=== PATIENT | male | born 1945 | race Caucasian/White ===

== ENCOUNTER → 2017-01-29 | Outpatient (REF) | payer MEDICARE, OTHER ==
[2017-01-29 13:24] LABS: ALBUMIN 3.6 GM/DL (3.2-5.2); ALBUMIN/GLOBULIN RATIO 0.86 (1.00-1.93); ALKALINE PHOSPHATASE 75 U/L (45-117); ALT/SGPT 20 U/L (12-78); ANION GAP 8 MEQ/L (8-16); AST/SGOT 11 U/L (15-37); BILIRUBIN,TOTAL 0.6 MG/DL (0.2-1.0); BLOOD UREA NITROGEN 23 MG/DL (7-18); CALCIUM LEVEL 9.4 MG/DL (8.8-10.2); CARBON DIOXIDE LEVEL 27 MEQ/L (21-32); CHLORIDE LEVEL 102 MEQ/L (98-107); CREATININE FOR GFR 1.16 MG/DL (0.70-1.30); GLOMERULAR FILTRATION RATE > 60.0 (>42); GLUCOSE, FASTING 100 MG/DL (83-110); POTASSIUM SERUM 4.1 MEQ/L (3.5-5.1); SODIUM LEVEL 137 MEQ/L (136-145); TOTAL PROTEIN 7.8 GM/DL (6.4-8.2)
== END ==
LOC: M SFHCPLAZ 08:12
PROVIDERS: ATTEND Nurse Practitioner Family
DX: I10 Essential (primary) hypertension (principal); E55.9 Vitamin D deficiency, unspecified
CPT/HCPCS: 80053; 82306; G0463

== ENCOUNTER → 2017-06-18 | Outpatient (CLI) | payer MEDICARE, BC, OTHER ==
[2017-06-18 13:32] LABS: BLOOD UREA NITROGEN 25 MG/DL (7-18); CREATININE FOR GFR 0.97 MG/DL (0.70-1.30); GLOMERULAR FILTRATION RATE > 60.0 (>42)
== END ==
LOC: M WUC 09:53
PROVIDERS: ATTEND Surgery Vascular Surgery
DX: I70.211 Atherosclerosis of native arteries of extremities with intermittent claudication, right leg (principal)

== ENCOUNTER → 2017-07-16 | Outpatient (CLI) | payer MEDICARE, BC, OTHER ==
[~2017-07-16] MED LIST: ISOVUE-370 76% 100ML VIAL (Q9967) As Ordered ONE
--- NOTE | 2017-07-16 15:25 | REP ---
CT ANGIOGRAM OF THE ABDOMINAL AORTA AND RUNOFF VESSELS WITH IV CONTRAST: HISTORY: Bilateral lower extremity claudication. TECHNIQUE: Helical scanning is acquired post contrast and contiguous 3 mm axial images are generated. Coronal and sagittal multiplanar re-formation images are generated and reviewed. Thick slab maximal intensity projection images are generated. 3D work station generated color surface rendered images are obtained and reviewed rotational. NONVASCULAR CT FINDINGS: There is left colonic diverticulosis without CT evidence of diverticulitis. The prostate is moderately enlarged. VASCULAR CT FINDINGS: The distal thoracic and abdominal aorta are normal in caliber with moderate multifocal calcific plaquing. The celiac axis and superior mesenteric axis origins are unremarkable. Vascular calcification is seen at the origin of the main renal artery bilaterally without high-grade stenosis. There is a tiny patent upper pole renal artery on the left. Inferior mesenteric artery is patent. The left common iliac artery is occluded at its origin and there is reconstitution of the distal external at its bifurcation. A patent fem-fem crossover graft is seen in the suprapubic soft tissues. Vascular calcification is seen in the external iliacs bilaterally. The left external iliac, although patent, is quite small throughout its course. The left common femoral artery is nonstenotic. Its bifurcation is patent. The proximal superficial and profunda femoral artery are patent. There is moderate vascular atherosclerotic calcification in the mid SFA on the left. Left popliteal artery is of good caliber with some calcification. The tibioperoneal trunk is unremarkable. There is calcification at the trifurcation. Patent anterior, posterior tibial and peroneal arteries are seen to the distal calf on the left and the anterior tibial and posterior tibial across the ankle. On the right, there is some plaquing at the common femoral artery bifurcation. Profunda and superficial femoral arteries are patent. Calcific plaquing is seen in the proximal superficial femoral artery and multifocal calcific plaquing is seen in the SFA without high-grade stenosis. Popliteal artery is of good caliber but calcific. The tibioperoneal trunk is widely patent. Three-vessel calf run off is seen to the distal calf with anterior and posterior tibial arteries patent across the ankle. IMPRESSION: Good runoff bilaterally. 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 Patent fem-fem crossover graft. Atherosclerotic plaquing involving both superficial femoral arteries and popliteal arteries. No high-grade stenosis seen. Duplicated left renal artery. Left colonic diverticulosis and prostate enlargement. Signed by Marcio Camp MD 07/16/2017 05:12 P
== END ==
LOC: M RAD 12:33
PROVIDERS: ATTEND Surgery Vascular Surgery
DX: I70.213 Atherosclerosis of native arteries of extremities with intermittent claudication, bilateral legs (principal); K57.30 Diverticulosis of large intestine without perforation or abscess without bleeding; N40.0 Benign prostatic hyperplasia without lower urinary tract symptoms
CPT/HCPCS: 75635; Q9967

== ENCOUNTER → 2017-07-31 | Outpatient (CLI) | payer MEDICARE, BC, OTHER ==
--- NOTE | 2017-07-31 19:37 | REP ---
MRI lumbar spine: Without contrast. History: Bilateral leg weakness. Comparison radiographs are from November 14, 2015. Technique: Sagittal and axial T1 and T2-weighted scans are acquired in the usual fashion with and without fat saturation. Sequences include spin echo, turbo spin-echo, and STIR imaging sequences. MRI findings: Lumbar vertebral body heights are preserved. Alignment is normal. Cortical and medullary bone signal intensity are normal. Conus medullaris is normal in position and appearance at T12-L1. Normal caliber aorta. No extra spinal abnormality is observed. At L5-S1, axial and sagittal images demonstrate a very small central disc protrusion without thecal sac compression. There is mild facet hypertrophy bilaterally. No neural foraminal narrowing is appreciated. At L4-5, there is diffuse disc bulging. There is moderate osteoarthritic facet hypertrophy bilaterally. Canal size is borderline due to ligamentum flavum and facet hypertrophy as well as diffuse disc bulging. Mid sagittal AP dimension of the thecal sac is 11 mm in the midline. There is a subtle 1 mm L4-5 spondylolisthesis due to degenerative disc and facet disease. There is bilateral neural foraminal narrowing from disc bulging and facet hypertrophy, left more so than right. At L3-4, there is mild diffuse disc bulging. Minimal facet and ligamentum flavum hypertrophy changes are seen. Canal size is normal. No neural foraminal narrowing is seen. At L2-3 and L1-2 there is no significant finding. Impression: Borderline canal size at L4-5 with diffuse disc bulging, ligamentum flavum and facet hypertrophy and bilateral neural foraminal narrowing at L4-5. A very subtle grade 1 degenerative L4-5 spondylolisthesis is noted. Signed by Marcio Camp MD 08/01/2017 08:32 A
== END ==
LOC: M RAD 13:57
PROVIDERS: ATTEND Surgery Vascular Surgery
DX: M79.604 Pain in right leg (principal); M79.605 Pain in left leg; M51.26 Other intervertebral disc displacement, lumbar region; M43.16 Spondylolisthesis, lumbar region

== ENCOUNTER → 2018-01-26 | Outpatient (CLI) | payer MEDICARE, BC, OTHER | LOC: M WUC 14:55 | DX: J44.9 Chronic obstructive pulmonary disease, unspecified (principal) | CPT/HCPCS: 71046 ==

== ENCOUNTER → 2018-02-19 | Outpatient (REF) | payer MEDICARE, OTHER ==
[2018-02-19 13:12] LABS: ALBUMIN 3.3 GM/DL (3.2-5.2); ALBUMIN/GLOBULIN RATIO 0.75 (1.00-1.93); ALKALINE PHOSPHATASE 70 U/L (45-117); ALT/SGPT 16 U/L (12-78); ANION GAP 10 MEQ/L (8-16); AST/SGOT 13 U/L (7-37); BILIRUBIN,TOTAL 0.3 MG/DL (0.2-1.0); BLOOD UREA NITROGEN 24 MG/DL (7-18); CALCIUM LEVEL 9.1 MG/DL (8.8-10.2); CARBON DIOXIDE LEVEL 26 MEQ/L (21-32); CHLORIDE LEVEL 103 MEQ/L (98-107); CHOLESTEROL LEVEL 201 MG/DL (<200); CHOLESTEROL RISK RATIO 3.941 (<5); CREATININE FOR GFR 1.14 MG/DL (0.70-1.30); GLOMERULAR FILTRATION RATE > 60.0 (>42); GLUCOSE, FASTING 89 MG/DL (70-100); HDL CHOLESTEROL 51 MG/DL (>40); LDL CHOLESTEROL 130.6 MG/DL (<100); NON-HDL-C 150 MG/DL; POTASSIUM SERUM 4.3 MEQ/L (3.5-5.1); SODIUM LEVEL 139 MEQ/L (136-145); TOTAL PROTEIN 7.7 GM/DL (6.4-8.2); TRIGLYCERIDES LEVEL 97 MG/DL (<150)
== END ==
LOC: M SFHCPLAZ 09:44
DX: E78.2 Mixed hyperlipidemia (principal)
CPT/HCPCS: 80053

== ENCOUNTER 2018-07-03 21:44 | Inpatient (IN) | payer MEDICARE, BC, OTHER ==
[2018-07-03 22:31] LABS: BASO % 0.3 % (0.0-1.0); EOS # 0.1 10^3/uL (0.0-0.50); HEMATOCRIT 44.7 % (42.0-52.0); HEMOGLOBIN 14.5 g/dl (13.5-17.5); IMMATURE GRANULOCYTE % 0.5 % (0-3.0); LYMPH # 0.8 10^3/uL (1.5-4.5); LYMPH % 9.9 % (24.0-44.0); MEAN CORPUSCULAR HEMOGLOBIN 26.6 pg (27.0-33.0); MEAN CORPUSCULAR HGB CONC 32.4 g/dl (32.0-36.5); MONO # 0.8 10^3/uL (0.0-0.8); MONO % 10.7 % (0.0-5.0); NEUTROPHILS # 6.1 10^3/uL (1.8-7.7); NEUTROPHILS % 77.6 % (36.0-66.0); PLATELET COUNT, AUTOMATED 250 10^3/uL (150-450); RED BLOOD COUNT 5.45 10^6/uL (4.30-6.10); WHITE BLOOD COUNT 7.9 10^3/uL (4.0-10.0)
[2018-07-03 22:41] LABS: INR 0.94; PROTHROMBIN TIME 12.7 SECONDS (12.1-14.4)
[2018-07-03 22:51] LABS: ERYTHROCYTE SEDIMENTATION RATE 4 mm/hr (0-20)
[2018-07-03 23:08] LABS: ANION GAP 15 MEQ/L (8-16); BLOOD UREA NITROGEN 32 MG/DL (7-18); CALCIUM LEVEL 9.6 MG/DL (8.8-10.2); CARBON DIOXIDE LEVEL 19 MEQ/L (21-32); CHLORIDE LEVEL 100 MEQ/L (98-107); CREATININE FOR GFR 1.89 MG/DL (0.70-1.30); GLOMERULAR FILTRATION RATE 37.5 (>42); GLUCOSE, FASTING 99 MG/DL (70-100); POTASSIUM SERUM 3.6 MEQ/L (3.5-5.1); SODIUM LEVEL 134 MEQ/L (136-145)
[2018-07-03 23:10] LABS: LACTIC ACID SEPSIS PROTOCOL 3.3 MMOL/L (0.4-2.0)
[2018-07-03] MEDS ORDERED: NS 500 ML IV (23:15)
[2018-07-03] MEDS: NS 1,000 ML IV (23:15)
[2018-07-03] MEDS ORDERED: cefTRIAXone SOD 1 GM in D5W MINI-BAG PLUS 50 ML IV (23:30)
[2018-07-04] MEDS: NS 1,000 ML IV ×2 (01:15→09:24)
[2018-07-04] MEDS ORDERED: ACETAMINOPHEN TAB 650MG DOSE (2X325MG) PO (01:15)
[2018-07-04] MEDS ORDERED: CLINDAMYCIN 600 MG/50 ML PREMIX BAG As Ordered (01:20)
[2018-07-04] MEDS: CLINDAMYCIN 600 MG in APPROPRIATE DILUENT 1 EA IV ×4 (01:21→20:28)
[2018-07-04] MEDS: CLOPIDOGREL 75 MG TAB PO ×2 (02:38→20:28)
[2018-07-04] MEDS: ASPIRIN 325 MG TAB PO ×2 (02:38→20:28)
[2018-07-04 07:45] LABS: BASO % 0.3 % (0.0-1.0); EOS # 0.2 10^3/uL (0.0-0.50); EOS % 2.6 % (0.0-3.0); HEMATOCRIT 40.1 % (42.0-52.0); HEMOGLOBIN 13.1 g/dl (13.5-17.5); IMMATURE GRANULOCYTE % 0.3 % (0-3.0); LYMPH # 0.8 10^3/uL (1.5-4.5); LYMPH % 14.2 % (24.0-44.0); MEAN CORPUSCULAR HEMOGLOBIN 26.6 pg (27.0-33.0); MEAN CORPUSCULAR HGB CONC 32.7 g/dl (32.0-36.5); MEAN CORPUSCULAR VOLUME 81.5 fl (80.0-96.0); MONO # 0.9 10^3/uL (0.0-0.8); MONO % 16.3 % (0.0-5.0); NEUTROPHILS # 3.8 10^3/uL (1.8-7.7); NEUTROPHILS % 66.3 % (36.0-66.0); PLATELET COUNT, AUTOMATED 220 10^3/uL (150-450); RED BLOOD COUNT 4.92 10^6/uL (4.30-6.10); RED CELL DISTRIBUTION WIDTH 14.7 % (11.5-14.5); WHITE BLOOD COUNT 5.8 10^3/uL (4.0-10.0)
[2018-07-04 08:06] LABS: ANION GAP 10 MEQ/L (8-16); BLOOD UREA NITROGEN 26 MG/DL (7-18); CALCIUM LEVEL 8.8 MG/DL (8.8-10.2); CARBON DIOXIDE LEVEL 24 MEQ/L (21-32); CHLORIDE LEVEL 106 MEQ/L (98-107); CREATININE FOR GFR 1.22 MG/DL (0.70-1.30); GLOMERULAR FILTRATION RATE > 60.0 (>42); GLUCOSE, FASTING 99 MG/DL (70-100); POTASSIUM SERUM 4.1 MEQ/L (3.5-5.1); SODIUM LEVEL 140 MEQ/L (136-145)
[2018-07-04] MEDS: ENOXAPARIN 40 MG/0.4 ML SYRINGE (J1650) SC ×2 (09:00→09:20)
[2018-07-04] MEDS ORDERED: ASPIRIN 325 MG TAB PO (09:00)
[2018-07-04] MEDS ORDERED: CLOPIDOGREL 75 MG TAB PO (09:00)
[2018-07-04] MEDS: HYDROCORTISONE 2.5% 20GM OINTMENT TOP ×2 (09:20→20:29)
[2018-07-04] MEDS: hydroCHLOROthiazide 25 MG TAB PO (09:21)
[2018-07-04] MEDS: LISINOPRIL 10 MG TAB PO (09:21)
[2018-07-04] MEDS: GEMFIBROZIL 600 MG TAB PO ×2 (09:22→20:28)
[2018-07-04] MEDS: PANTOPRAZOLE 40MG TAB (PROTONIX) PO (09:22)
[2018-07-04] MEDS: EZETIMIBE 10 MG TAB (ZETIA) PO (09:22)
[2018-07-05] MEDS: CLINDAMYCIN 600 MG in APPROPRIATE DILUENT 1 EA IV ×4 (01:39→19:45)
[2018-07-05 08:12] LABS: HEMATOCRIT 40.5 % (42.0-52.0); HEMOGLOBIN 13.1 g/dl (13.5-17.5); MEAN CORPUSCULAR HGB CONC 32.3 g/dl (32.0-36.5); MEAN CORPUSCULAR VOLUME 80.4 fl (80.0-96.0); PLATELET COUNT, AUTOMATED 243 10^3/uL (150-450); RED BLOOD COUNT 5.04 10^6/uL (4.30-6.10); RED CELL DISTRIBUTION WIDTH 14.6 % (11.5-14.5); WHITE BLOOD COUNT 5.2 10^3/uL (4.0-10.0)
[2018-07-05 08:40] LABS: ANION GAP 8 MEQ/L (8-16); BLOOD UREA NITROGEN 21 MG/DL (7-18); CALCIUM LEVEL 9.4 MG/DL (8.8-10.2); CARBON DIOXIDE LEVEL 26 MEQ/L (21-32); CHLORIDE LEVEL 106 MEQ/L (98-107); CREATININE FOR GFR 1.08 MG/DL (0.70-1.30); GLOMERULAR FILTRATION RATE > 60.0 (>42); GLUCOSE, FASTING 98 MG/DL (70-100); SODIUM LEVEL 140 MEQ/L (136-145)
[2018-07-05] MEDS: LACTIC ACID 12% LOTION 225 GM BTL TOP ×2 (09:00→21:00)
[2018-07-05] MEDS: ENOXAPARIN 40 MG/0.4 ML SYRINGE (J1650) SC (09:00)
[2018-07-05] MEDS: GEMFIBROZIL 600 MG TAB PO ×2 (10:19→22:14)
[2018-07-05] MEDS: EZETIMIBE 10 MG TAB (ZETIA) PO (10:19)
[2018-07-05] MEDS: PANTOPRAZOLE 40MG TAB (PROTONIX) PO (10:20)
[2018-07-05] MEDS: hydroCHLOROthiazide 25 MG TAB PO (10:20)
[2018-07-05] MEDS: HYDROCORTISONE 2.5% 20GM OINTMENT TOP ×2 (10:21→21:00)
[2018-07-05] MEDS: LISINOPRIL 10 MG TAB PO (10:22)
[2018-07-05] MEDS: ASPIRIN 325 MG TAB PO (22:14)
[2018-07-05] MEDS: CLOPIDOGREL 75 MG TAB PO (22:14)
[2018-07-06] MEDS: CLINDAMYCIN 600 MG in APPROPRIATE DILUENT 1 EA IV ×2 (01:54→08:16)
[2018-07-06 07:07] LABS: HEMATOCRIT 43.1 % (42.0-52.0); MEAN CORPUSCULAR HEMOGLOBIN 25.9 pg (27.0-33.0); MEAN CORPUSCULAR HGB CONC 32.5 g/dl (32.0-36.5); MEAN CORPUSCULAR VOLUME 79.8 fl (80.0-96.0); PLATELET COUNT, AUTOMATED 265 10^3/uL (150-450); RED CELL DISTRIBUTION WIDTH 14.6 % (11.5-14.5); WHITE BLOOD COUNT 5.4 10^3/uL (4.0-10.0)
[2018-07-06 07:23] LABS: ANION GAP 8 MEQ/L (8-16); BLOOD UREA NITROGEN 21 MG/DL (7-18); C REACTIVE PROTEIN QUANTITATIV 7.08 MG/DL (0.00-0.30); CALCIUM LEVEL 9.7 MG/DL (8.8-10.2); CARBON DIOXIDE LEVEL 28 MEQ/L (21-32); CHLORIDE LEVEL 103 MEQ/L (98-107); CREATININE FOR GFR 1.08 MG/DL (0.70-1.30); GLOMERULAR FILTRATION RATE > 60.0 (>42); GLUCOSE, FASTING 99 MG/DL (70-100); POTASSIUM SERUM 3.9 MEQ/L (3.5-5.1); SODIUM LEVEL 139 MEQ/L (136-145)
[2018-07-06] MEDS: hydroCHLOROthiazide 25 MG TAB PO (08:16)
[2018-07-06] MEDS: GEMFIBROZIL 600 MG TAB PO (08:17)
[2018-07-06] MEDS: EZETIMIBE 10 MG TAB (ZETIA) PO (08:17)
[2018-07-06] MEDS: LISINOPRIL 10 MG TAB PO (08:17)
[2018-07-06] MEDS: PANTOPRAZOLE 40MG TAB (PROTONIX) PO (08:17)
[2018-07-06] MEDS: LACTIC ACID 12% LOTION 225 GM BTL TOP (08:18)
[2018-07-06] MEDS: ENOXAPARIN 40 MG/0.4 ML SYRINGE (J1650) SC (08:19)
[2018-07-06] MEDS: HYDROCORTISONE 2.5% 20GM OINTMENT TOP (08:19)
[2018-07-06] MEDS: hydroCHLOROthiazide 12.5 MG CAPSULE PO (08:46)
== END 2018-07-06 13:05 | disposition home or self-care (01) | DRG 603 ==
LOC: M ED INP 07-04 01:03 → M ED 21:44 → M MS5PR 07-04 02:00
DX: L03.116 Cellulitis of left lower limb (principal); N17.9 Acute kidney failure, unspecified; I10 Essential (primary) hypertension; J44.9 Chronic obstructive pulmonary disease, unspecified; E78.5 Hyperlipidemia, unspecified; E86.0 Dehydration; I73.9 Peripheral vascular disease, unspecified; Z87.891 Personal history of nicotine dependence; Z79.82 Long term (current) use of aspirin; Z79.02 Long term (current) use of antithrombotics/antiplatelets; Z79.899 Other long term (current) drug therapy; Z91.013 Allergy to seafood; Z88.8 Allergy status to other drugs, medicaments and biological substances; Z98.62 Peripheral vascular angioplasty status

== ENCOUNTER → 2018-07-15 | Outpatient (CLI) | payer MEDICARE, BC, OTHER | LOC: M ADAMS 10:06 | DX: M25.472 Effusion, left ankle (principal); M19.072 Primary osteoarthritis, left ankle and foot; M77.32 Calcaneal spur, left foot | CPT/HCPCS: 73610 ==

== ENCOUNTER → 2018-09-01 | Outpatient (CLI) | payer MEDICARE, BC, OTHER | LOC: M RAD 08:56 | DX: Z12.2 Encounter for screening for malignant neoplasm of respiratory organs (principal); J44.9 Chronic obstructive pulmonary disease, unspecified; Z87.891 Personal history of nicotine dependence | CPT/HCPCS: G0297 ==

== ENCOUNTER → 2018-09-03 | Outpatient (CLI) | payer MEDICARE, BC, OTHER ==
[2018-09-03 11:49] LABS: BASO % 0.3 % (0.0-1.0); EOS % 0.4 % (0.0-3.0); HEMOGLOBIN 14.9 g/dl (13.5-17.5); IMMATURE GRANULOCYTE % 0.3 % (0-3.0); LYMPH # 0.9 10^3/uL (1.5-4.5); LYMPH % 9.9 % (24.0-44.0); MEAN CORPUSCULAR HEMOGLOBIN 26.4 pg (27.0-33.0); MEAN CORPUSCULAR HGB CONC 31.7 g/dl (32.0-36.5); MEAN CORPUSCULAR VOLUME 83.3 fl (80.0-96.0); MONO % 10.4 % (0.0-5.0); NEUTROPHILS # 7.5 10^3/uL (1.8-7.7); NEUTROPHILS % 78.7 % (36.0-66.0); PLATELET COUNT, AUTOMATED 250 10^3/uL (150-450); RED BLOOD COUNT 5.64 10^6/uL (4.30-6.10); RED CELL DISTRIBUTION WIDTH 15.6 % (11.5-14.5); WHITE BLOOD COUNT 9.5 10^3/uL (4.0-10.0)
== END ==
LOC: M WUC 10:59
DX: L03.116 Cellulitis of left lower limb (principal)
CPT/HCPCS: 85025

== ENCOUNTER → 2019-02-01 | Outpatient (CLI) | payer MEDICARE, BC, OTHER ==
[~2019-02-01] MED LIST changes: +ADVA115A INH; +ASPI-1 PO; +CLEO300C2 PO; +EZET10TA PO; +GEMF600T5 PO; +HYDR12.55 PO; +HYDR25TAB PO; -ISOVUE-370 76% 100ML VIAL (Q9967) As Ordered ONE; +LACH12LO TOP; +LISI10TA4 PO; +PANT40TA3 PO; +PLAV1TAB2 PO; +PROAAER10 INH; +SPIR1CAP INH
[2019-02-01 17:01] LABS: ALBUMIN 3.2 GM/DL (3.2-5.2); ALT/SGPT 28 U/L (12-78); BILIRUBIN,TOTAL 0.4 MG/DL (0.2-1.0); BLOOD UREA NITROGEN 20 MG/DL (7-18); CALCIUM LEVEL 9.2 MG/DL (8.8-10.2); CARBON DIOXIDE LEVEL 29 MEQ/L (21-32); CHLORIDE LEVEL 103 MEQ/L (98-107); CHOLESTEROL LEVEL 209 MG/DL (<200); CREATININE FOR GFR 1.06 MG/DL (0.70-1.30); GLOMERULAR FILTRATION RATE > 60.0 (>42); GLUCOSE, FASTING 77 MG/DL (70-100); HDL CHOLESTEROL 44 MG/DL (>40); LDL CHOLESTEROL 142 MG/DL (<100); NON-HDL-C 165 MG/DL; POTASSIUM SERUM 4.2 MEQ/L (3.5-5.1); SODIUM LEVEL 138 MEQ/L (136-145); TOTAL PROTEIN 7.8 GM/DL (6.4-8.2); TRIGLYCERIDES LEVEL 115 MG/DL (<150)
== END ==
LOC: M WUC 10:58
PROVIDERS: ATTEND Nurse Practitioner Family
DX: E78.2 Mixed hyperlipidemia (principal)

== ENCOUNTER → 2019-06-30 | Outpatient (REF) | payer MEDICARE, OTHER ==
[~2019-06-30] MED LIST changes: -EZET10TA PO; +EZET10TA21 PO
== END ==
LOC: M SFHCPLAZ 18:46
PROVIDERS: ATTEND Surgery
DX: R23.4 Changes in skin texture (principal); T14.8XXA Other injury of unspecified body region, initial encounter; S81.802A Unspecified open wound, left lower leg, initial encounter
CPT/HCPCS: 11042; 88304; G0463

== ENCOUNTER → 2019-08-22 | Outpatient (CLI) | payer MEDICARE, OTHER ==
[2019-08-22 13:24] LABS: BLOOD UREA NITROGEN 26 MG/DL (7-18); CREATININE FOR GFR 1.09 MG/DL (0.70-1.30); GLOMERULAR FILTRATION RATE > 60.0 (>42)
== END ==
LOC: M WUC 10:52
PROVIDERS: ATTEND Surgery Vascular Surgery
DX: I70.213 Atherosclerosis of native arteries of extremities with intermittent claudication, bilateral legs (principal)

== ENCOUNTER → 2019-08-24 | Outpatient (CLI) | payer MEDICARE, BC, OTHER ==
[~2019-08-24] MED LIST changes: +ISOVUE-370 76% 100ML VIAL (Q9967) As Ordered ONE
--- NOTE | 2019-08-24 15:30 | REP ---
CT angiography of the abdominal aorta and bilateral lower extremity runoff arteries with IV contrast: History: Atherosclerosis. Comparison study July 16, 2017. CT contrast dose: 100 mL of intravenous Isovue [address] findings: Nonvascular findings include moderate prostate enlargement, left colonic diverticulosis, and a calcified granuloma in the left lower lobe. Vascular findings: The suprarenal abdominal aorta is unremarkable except for some circumferential calcific plaquing. The celiac, superior mesenteric, and inferior mesenteric arteries are patent. There is heavy vascular calcification at the origin of the main renal artery on the left. An accessory upper pole left renal artery is again seen. The infrarenal abdominal aorta is heavily calcified and the distal aorta shows 40-50% narrowing. The left common iliac artery is again seen to be occluded at its origin. The external iliac artery is reconstituted as is the internal iliac artery via collaterals. There is calcific plaquing narrowing the left external iliac artery. There is fairly heavy plaquing in the common iliac on the right and multifocal plaquing is seen in the external iliac on the right. Internal iliac artery is patent on the right. There is a patent [id number] fem-fem crossover graft again noted. These findings are unchanged. Multifocal atherosclerotic calcific plaquing and irregularity is seen in the superficial femoral arteries bilaterally. No high-grade stenosis is seen. Three-vessel calf runoff is observed to the distal calf on the right. On the left there is popliteal artery calcification. There is some calcification at the trifurcation. Three-vessel calf run off is observed on the left as well. 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 Patent [id number] fem-fem crossover graft. Extensive calcific plaquing in the superficial femoral arteries and in the calf trifurcation regions bilaterally. No other high-grade stenosis is seen. Electronically Signed by Marcio Camp MD 08/24/2019 04:58 P
== END ==
LOC: M RAD 13:35
PROVIDERS: ATTEND Surgery Vascular Surgery
DX: I70.213 Atherosclerosis of native arteries of extremities with intermittent claudication, bilateral legs (principal)
CPT/HCPCS: 75635; Q9967

== ENCOUNTER → 2019-09-14 | Outpatient (CLI) | payer MEDICARE, BC, OTHER ==
[~2019-09-14] MED LIST changes: -ISOVUE-370 76% 100ML VIAL (Q9967) As Ordered ONE
[2019-09-14 12:43] LABS: BASO % 0.6 % (0.0-1.0); EOS # 0.1 10^3/uL (0.0-0.5); EOS % 2.1 % (0.0-3.0); HEMATOCRIT 48.5 % (42.0-52.0); LYMPH # 1.4 10^3/uL (1.5-5.0); LYMPH % 22.1 % (24.0-44.0); MEAN CORPUSCULAR HEMOGLOBIN 26.3 pg (27.0-33.0); MEAN CORPUSCULAR HGB CONC 30.9 g/dl (32.0-36.5); MEAN CORPUSCULAR VOLUME 84.9 fl (80.0-96.0); MONO # 0.8 10^3/uL (0.0-0.8); MONO % 12.5 % (0.0-5.0); NEUTROPHILS # 3.8 10^3/uL (1.5-8.5); NEUTROPHILS % 62.4 % (36.0-66.0); PLATELET COUNT, AUTOMATED 276 10^3/uL (150-450); RED BLOOD COUNT 5.71 10^6/uL (4.30-6.10); WHITE BLOOD COUNT 6.2 10^3/uL (4.0-10.0)
[2019-09-14 13:05] LABS: BLOOD UREA NITROGEN 22 MG/DL (7-18); CALCIUM LEVEL 9.1 MG/DL (8.8-10.2); CARBON DIOXIDE LEVEL 28 MEQ/L (21-32); CHLORIDE LEVEL 105 MEQ/L (98-107); CREATININE FOR GFR 0.97 MG/DL (0.70-1.30); GLOMERULAR FILTRATION RATE > 60.0 (>42); GLUCOSE, FASTING 81 MG/DL (70-100); POTASSIUM SERUM 4.4 MEQ/L (3.5-5.1); SODIUM LEVEL 139 MEQ/L (136-145)
[2019-09-14 13:07] LABS: PROTHROMBIN TIME 12.9 SECONDS (11.8-14.0)
[2019-09-14 13:08] LABS: PARTIAL THROMBOPLASTIN TIME 31.7 SECONDS (25.0-38.4)
== END ==
LOC: M WUC 10:22
PROVIDERS: ATTEND Surgery Vascular Surgery
DX: Z01.818 Encounter for other preprocedural examination (principal); I70.213 Atherosclerosis of native arteries of extremities with intermittent claudication, bilateral legs; D69.8 Other specified hemorrhagic conditions

== ENCOUNTER → 2019-09-14 | Outpatient (CLI) | payer MEDICARE, BC, OTHER ==
--- NOTE | 2019-09-14 14:13 | REP ---
CT chest without contrast: Low-dose screening exam. History: Nicotine dependence. Comparison chest CT studies are reviewed from September 01, 2018 and February 21, 2010. CT findings: There are multiple calcified granulomatous changes in the lung kelly bilaterally which are all stable from the September 01, 2018 prior study. There are several noncalcified pleural-based pulmonary nodules which are unchanged. There is a small plaque on the right diaphragm unchanged. There are emphysematous changes in the upper lobes bilaterally. There is a 6 mm nodular opacity in the left upper lobe with some adjacent scarring. This is unchanged from the 2009 and 2017 prior study. No new pulmonary nodule or mass lesion is observed. Impression: Lung-RADS category 2 features. Repeat screening study recommended in 1 year. Electronically Signed by Marcio Camp MD 09/14/2019 05:41 P
== END ==
LOC: M RAD 09:19
PROVIDERS: ATTEND Internal Medicine Pulmonary Disease
DX: Z01.818 Encounter for other preprocedural examination (principal); Z12.2 Encounter for screening for malignant neoplasm of respiratory organs; Z87.891 Personal history of nicotine dependence; I70.213 Atherosclerosis of native arteries of extremities with intermittent claudication, bilateral legs; D69.8 Other specified hemorrhagic conditions
CPT/HCPCS: 36415; 80048; 85025; 85610; 85730; G0297

== ENCOUNTER → 2020-05-10 | Outpatient (REF) | payer MEDICARE, BC, OTHER ==
[~2020-05-10] MED LIST changes: +ALEV220T22 PO; +NORC1TAB7 PO; +PANT40TA29 PO; -PANT40TA3 PO; +TRIC145T22 PO; +VIAG100T PO; +VITA200048 PO
== END ==
LOC: M LAB REF 15:22
PROVIDERS: ATTEND Physician Assistant
DX: L97.822 Non-pressure chronic ulcer of other part of left lower leg with fat layer exposed (principal)

== ENCOUNTER → 2020-06-21 | Outpatient (REF) | payer MEDICARE, OTHER | LOC: M LAB REF 16:35 | PROVIDERS: ATTEND Plastic Surgery Surgery of the Hand | DX: D48.5 Neoplasm of uncertain behavior of skin (principal) ==

== ENCOUNTER → 2020-07-02 | Outpatient (CLI) | payer MEDICARE, BC, OTHER ==
[2020-07-02 16:05] LABS: BASO % 0.5 % (0.0-1.0); EOS # 0.1 10^3/uL (0.0-0.5); EOS % 1.8 % (0.0-3.0); HEMATOCRIT 49.8 % (42.0-52.0); HEMOGLOBIN 15.2 g/dl (13.5-17.5); LYMPH # 1.4 10^3/uL (1.5-5.0); LYMPH % 21.7 % (24.0-44.0); MEAN CORPUSCULAR HEMOGLOBIN 25.8 pg (27.0-33.0); MEAN CORPUSCULAR HGB CONC 30.5 g/dl (32.0-36.5); MEAN CORPUSCULAR VOLUME 84.4 fl (80.0-96.0); MONO # 0.8 10^3/uL (0.0-0.8); MONO % 11.5 % (0.0-5.0); NEUTROPHILS # 4.2 10^3/uL (1.5-8.5); PLATELET COUNT, AUTOMATED 297 10^3/uL (150-450); WHITE BLOOD COUNT 6.6 10^3/uL (4.0-10.0)
[2020-07-02 16:15] LABS: ALBUMIN 3.7 GM/DL (3.2-5.2); ALT/SGPT 27 U/L (12-78); BILIRUBIN,TOTAL 0.5 MG/DL (0.2-1.0); BLOOD UREA NITROGEN 25 MG/DL (7-18); CALCIUM LEVEL 9.8 MG/DL (8.8-10.2); CARBON DIOXIDE LEVEL 32 MEQ/L (21-32); CHLORIDE LEVEL 102 MEQ/L (98-107); CHOLESTEROL LEVEL 313 MG/DL (<200); CHOLESTEROL RISK RATIO 5.589 (<5); CREATININE FOR GFR 1.09 MG/DL (0.70-1.30); FREE T4 1.04 NG/DL (0.76-1.46); GLOMERULAR FILTRATION RATE > 60.0 (>42); GLUCOSE, FASTING 91 MG/DL (70-100); HDL CHOLESTEROL 56 MG/DL (>40); LDL CHOLESTEROL 221 MG/DL (<100); NON-HDL-C 257 MG/DL; NT-PRO BNP 40 PG/ML (<125); POTASSIUM SERUM 4.2 MEQ/L (3.5-5.1); SODIUM LEVEL 139 MEQ/L (136-145); TOTAL PROTEIN 8.1 GM/DL (6.4-8.2); TRIGLYCERIDES LEVEL 180 MG/DL (<150)
[2020-07-02 16:19] LABS: INR 0.92; PROTHROMBIN TIME 12.6 SECONDS (12.5-14.3)
[2020-07-02 16:20] LABS: PARTIAL THROMBOPLASTIN TIME 33.8 SECONDS (24.2-38.5)
[2020-07-02 16:26] LABS: HEMOGLOBIN A1c 5.8 %
--- NOTE | 2020-07-11 08:19 | REPPI ---
CHEST X-RAY: 2-VIEWS HISTORY: Chronic obstructive pulmonary disease (COPD). COMPARISON CHEST X-RAY: 01/26/2018. FINDINGS: The lungs remain rather hyperinflated with flattening of the hemidiaphragms and an increased AP diameter of the chest consistent with COPD. There is emphysematous oligemia in the upper lobes as before. Pleural angles are sharp. Heart is not enlarged. The aorta is calcific and minimally tortuous. There are degenerative changes in the thoracic spine. No focal infiltrate is seen. IMPRESSION: Hyperinflation and emphysematous changes. Chronic obstructive pulmonary disease (COPD) pattern. No acute abnormality. MTDD
== END ==
LOC: M PLAIMG 12:22
PROVIDERS: ATTEND Family Medicine
DX: M51.34 Other intervertebral disc degeneration, thoracic region (principal); I10 Essential (primary) hypertension; E78.2 Mixed hyperlipidemia; J44.9 Chronic obstructive pulmonary disease, unspecified; Z79.899 Other long term (current) drug therapy
CPT/HCPCS: 36415; 71046; 80053; 80061; 83036; 83880; 84439; 84443; 85025; 85610; 85730; G0103; G0463

== ENCOUNTER → 2020-07-05 | Outpatient (CLI) | payer MEDICARE, OTHER | LOC: M LABSMTC 10:34 | PROVIDERS: ATTEND Anesthesiology | DX: Z01.812 Encounter for preprocedural laboratory examination (principal); Z20.828 Contact with and (suspected) exposure to other viral communicable diseases | CPT/HCPCS: C9803; U0003 ==

== ENCOUNTER 2020-07-10 06:07 | Day surgery (SDC) | payer MEDICARE, BC, OTHER ==
[~2020-07-10] VITALS: Ht 175.3 cm; Wt 98.0 kg
[~2020-07-10 06:07] MED LIST changes: -NORC1TAB7 PO
[2020-07-10] MEDS ORDERED: LR 1,000 ML IV ONE (06:30)
[2020-07-10] MEDS ORDERED: ceFAZolin SOD 1 GM in D5W MINI-BAG PLUS 50 ML IV ONE (06:30)
[2020-07-10] MEDS ORDERED: MIDAZOLAM INJ 2MG/2ML VIAL (J2250 PER 1MG) As Ordered ONE (07:20)
[2020-07-10] MEDS ORDERED: dexameTHASONE 4 MG/ML 1ML VIAL (J1100 PER 1MG) As Ordered ONE ×2 (07:20→08:06)
[2020-07-10] MEDS ORDERED: propofoL 200 MG/20 ML VIAL As Ordered ONE ×2 (07:20→07:55)
[2020-07-10] MEDS ORDERED: fentaNYL 100 MCG/2 ML INJECTION (J3010) As Ordered ONE (07:20)
[2020-07-10] MEDS ORDERED: LIDOCAINE 2% 100MG/5ML SDV (FOR ANES.) As Ordered ONE (07:20)
[2020-07-10] MEDS ORDERED: EPINEPHrine INJ 1 MG/ML 1ML AMP As Ordered ONE (07:22)
[2020-07-10] MEDS ORDERED: BACITRACIN PWD 50,000 UNITS VIAL As Ordered ONE (07:22)
[2020-07-10] MEDS ORDERED: LIDOCAINE W/EPINEPHRINE 1% 20ML VIAL As Ordered ONE (07:49)
[2020-07-10] MEDS ORDERED: ePHEDrine SULFATE 25 MG/5 ML(5MG/ML) SYRINGE As Ordered ONE (08:06)
[2020-07-10] MEDS ORDERED: METOCLOPRAMIDE INJ 10MG/2ML VIAL (J2765 PER 1) As Ordered ONE (08:08)
[2020-07-10] MEDS ORDERED: ACETAMINOPHEN 1000MG 100ML IV BTL (OFIRMEV) (J0131 PER 10MG) As Ordered ONE (08:12)
[2020-07-10] MEDS ORDERED: LACRILUBE (AKWA TEARS) OPHTH OINT 3.5 GM As Ordered ONE (08:25)
--- NOTE | 2020-07-10 08:56 | POST-OPPD ---
Postoperative Procedure Note Date Of Procedure: Jul 10, 2020 PREOPERATIVE DIAGNOSIS: Left knee chronic open wound POSTOPERATIVE DIAGNOSIS: same FINDINGS: Left knee open wound 1.5x2cm PROCEDURE: Left knee full thickness skin graft application. Donor site left groin SURGEON: Dr Choi ANESTHESIA: General SPECIMENS: Debrided tissue left knee. Culture Left knee open wound ESTIMATED BLOOD LOSS: 1 cc REPLACED: none DRAINS: none COMPLICATIONS: none POSTOPERATIVE CONDITION: stable Dictation: [id number] KRISTEN CHOI DO Jul 10, 2020 08:56
[2020-07-10] MEDS ORDERED: NORC1TAB7 PO (09:06)
[2020-07-10] MEDS ORDERED: METOCLOPRAMIDE INJ 10MG/2ML VIAL (J2765 PER 1) IV PRN (09:15)
[2020-07-10] MEDS ORDERED: ONDANSETRON 4MG/2ML VIAL IV PRN (09:15)
[2020-07-10] MEDS ORDERED: MEPERIDINE INJ 25 MG/ML VIAL (J2175) IV PRN (09:15)
[2020-07-10] MEDS ORDERED: LR 1,000 ML IV SCH (09:15)
[2020-07-10] MEDS: fentaNYL 100 MCG/2 ML INJECTION (J3010) IV PRN ×4 (09:22→09:54)
[2020-07-10] MEDS: oxyCODONE 5MG TAB PO PRN ×2 (09:27→10:08)
[2020-07-10] MEDS ORDERED: MEPERIDINE INJ 25 MG/ML VIAL (J2175) As Ordered ONE ×2 (10:17→10:24)
[2020-07-10] MEDS ORDERED: MEPERIDINE 50 MG/ML 1ML VIAL (J2175) IM PRN (10:45)
[2020-07-10] MEDS ORDERED: LABETALOL 100MG/20ML VIAL As Ordered ONE (10:50)
[2020-07-10] MEDS ORDERED: LABETALOL 100MG/20ML VIAL IV SCH (11:00)
[2020-07-10 12:15] VITALS: BP 140/82
--- NOTE | 2020-07-17 08:44 | RO ---
DATE OF OPERATION: 07/10/2020 PREOPERATIVE DIAGNOSIS: Left knee chronic open wound. POSTOPERATIVE DIAGNOSIS: Left knee chronic open wound. PROCEDURE: Left knee full-thickness skin graft application. Donor site, left groin. ATTENDING SURGEON: Jocelyn Francis DO ANESTHESIA: General. SPECIMENS: Debrided tissue, left knee. CULTURES: Left knee open wound. ESTIMATED BLOOD LOSS: 1 mL. COMPLICATIONS: None. DRAINS: None. PROCEDURE: This is a 74-year-old male who comes to see us from the wound care clinic as a consult with chronic wound on the left knee. It has been open for several months, and in spite of aggressive care, it is not closing. The wound has been biopsied with no malignancy identified. He was scheduled for full- thickness skin graft. All risks, benefits, and alternatives were discussed with the patient. He is ready to proceed. On the day of surgery, the patient was marked. He was brought into the operating room, placed in supine position. Preoperative antibiotics were given. Sequentials were placed in the right lower leg. General anesthesia was induced. He was prepped and draped in the usual sterile fashion. The wound was measured, 1.5 x 2 cm in diameter with 0.2 depth. It is a clean wound, no drainage, with extensive granulation and fibrinous tissue in the wound bed. We started our procedure by doing an excisional debridement of the wound. All tissue was sent to pathology as well as cultures. The wound was irrigated with Bacitracin irrigation solution. It has a good healthy wound bed. We took a full- thickness donor skin from the left groin. It was defatted and then set in place in its new location at the left knee. It was sutured in place with 4-0 chromic sutures interrupted. Then, a bulky dressing was applied. The donor site was closed with interrupted 3-0 Monocryl and 4-0 Monocryl sutures with a minimal amount of bleeding. The patient was placed in a restrictive dressing and a knee immobilizer to minimize the motion of the knee. He was extubated in the operating room and transferred to the recovery room in stable condition. SRINIVAS
== END 2020-07-10 12:43 | disposition home or self-care (01) ==
LOC: M SDC 06:07
PROVIDERS: ATTEND Plastic Surgery Surgery of the Hand
DX: S81.002A Unspecified open wound, left knee, initial encounter (principal); I10 Essential (primary) hypertension; E78.00 Pure hypercholesterolemia, unspecified; I73.9 Peripheral vascular disease, unspecified; Z91.030 Bee allergy status; Z88.8 Allergy status to other drugs, medicaments and biological substances; J44.9 Chronic obstructive pulmonary disease, unspecified; E66.9 Obesity, unspecified; Z87.891 Personal history of nicotine dependence; Z79.899 Other long term (current) drug therapy; Z79.02 Long term (current) use of antithrombotics/antiplatelets; Y92.89 Other specified places as the place of occurrence of the external cause; Y93.9 Activity, unspecified
CPT/HCPCS: 11042; 15220; 87070; 87075; 87077; 87186; 87205; 88304; J0131; J0690; J1100; J2175; J2250; J2765; J3010

== ENCOUNTER → 2020-09-13 | Outpatient (REF) | payer MEDICARE, OTHER ==
[~2020-09-13] MED LIST changes: +NORC1TAB7 PO
[2020-09-13 14:09] LABS: CHOLESTEROL RISK RATIO 4.767 (<5)
== END ==
LOC: M SFHCADAM 10:07
PROVIDERS: ATTEND Family Medicine
DX: E78.2 Mixed hyperlipidemia (principal)

== ENCOUNTER → 2020-10-19 | Outpatient (CLI) | payer MEDICARE, BC, OTHER ==
[~2020-10-19] MED LIST changes: +HYDR-3490 PO; -HYDR25TAB PO; +LISI10TA22 PO; -LISI10TA4 PO
--- NOTE | 2020-10-19 11:45 | REP ---
INDICATION: PERSONAL HISTORY OF NICOTINE DEPENDENCE. COMPARISON: 09/14/2019 TECHNIQUE: Axial noncontrast images from the thoracic inlet to the upper abdomen using low-dose lung screening technique (LDCT). As per the protocol only lung window images were sent to the read station for interpretation. FINDINGS: There are numerable stable calcified and noncalcified lung nodules. There is a stable left apical asymmetric density. There is lung field hyperexpansion which appears unchanged. There is evidence of early cylindrical bronchiectasis status quo. Grossly, the mediastinum and pulmonary milan are unchanged. Grossly, the imaged upper abdomen and imaged osseous structures are unchanged. IMPRESSION: Stable exam as described above. Lung rads category 2. <Electronically signed by Sameer Saucedo > 10/19/20 [id number]
== END ==
LOC: M RAD 10:18
PROVIDERS: ATTEND Internal Medicine Pulmonary Disease
DX: Z12.2 Encounter for screening for malignant neoplasm of respiratory organs (principal); Z87.891 Personal history of nicotine dependence; R91.8 Other nonspecific abnormal finding of lung field

== ENCOUNTER → 2021-02-07 | Outpatient (REF) | payer MEDICARE, OTHER | LOC: M LAB REF 15:46 | PROVIDERS: ATTEND Surgery | DX: M71.022 Abscess of bursa, left elbow (principal); L02.414 Cutaneous abscess of left upper limb ==

== ENCOUNTER → 2021-03-19 | Outpatient (CLI) | payer MEDICARE, OTHER ==
--- NOTE | 2021-03-19 12:12 | REPPI ---
INDICATION: elevated PSA. COMPARISON: 01/10/2008. TECHNIQUE: Transrectal prostate ultrasound performed, with ultrasound guidance provided for Dr. Yoon who performed ultrasound-guided biopsy. FINDINGS: Prostate measures 4.6 x 4.2 x 5.7 cm, total volume 58.1 mL. Echotexture is diffusely heterogeneous with scattered tiny cysts and calcifications. No focal mass is seen. Seminal vesicles are symmetrical. IMPRESSION: Prostate ultrasound as above, ultrasound guidance was provided for Dr. Yoon who performed ultrasound-guided biopsy of the prostate. <Electronically signed by Jayy Casuey > 03/19/21 [id number]
== END ==
LOC: M SMT PRO 09:42
PROVIDERS: ATTEND Urology
DX: R97.20 Elevated prostate specific antigen [PSA] (principal)
CPT/HCPCS: 55700; 76872; 76942; G0416

== ENCOUNTER → 2021-08-07 | Outpatient (REF) | payer MEDICARE, OTHER ==
[2021-08-07 17:11] LABS: HEMATOCRIT 41.6 % (42.0-52.0); HEMOGLOBIN 12.4 g/dl (13.5-17.5); MEAN CORPUSCULAR HEMOGLOBIN 23.8 pg (27.0-33.0); MEAN CORPUSCULAR HGB CONC 29.8 g/dl (32.0-36.5); MEAN CORPUSCULAR VOLUME 79.7 fl (80.0-96.0); PLATELET COUNT, AUTOMATED 419 10^3/uL (150-450); RED BLOOD COUNT 5.22 10^6/uL (4.30-6.10); WHITE BLOOD COUNT 11.4 10^3/uL (4.0-10.0)
[2021-08-07 17:41] LABS: ALT/SGPT 25 U/L (12-78); BILIRUBIN,TOTAL 0.3 MG/DL (0.2-1.0); BLOOD UREA NITROGEN 25 MG/DL (7-18); CALCIUM LEVEL 9.8 MG/DL (8.8-10.2); CARBON DIOXIDE LEVEL 32 MEQ/L (21-32); CHLORIDE LEVEL 103 MEQ/L (98-107); CHOLESTEROL LEVEL 208 MG/DL (<200); CHOLESTEROL RISK RATIO 3.781 (<5); CREATININE FOR GFR 1.01 MG/DL (0.70-1.30); FREE T4 1.39 NG/DL (0.76-1.46); GLOMERULAR FILTRATION RATE > 60.0 (>42); GLUCOSE, FASTING 86 MG/DL (70-100); HDL CHOLESTEROL 55 MG/DL (>40); LDL CHOLESTEROL 137 MG/DL (<100); NON-HDL-C 153 MG/DL; POTASSIUM SERUM 4.4 MEQ/L (3.5-5.1); SODIUM LEVEL 139 MEQ/L (136-145); TOTAL PROTEIN 7.7 GM/DL (6.4-8.2); TRIGLYCERIDES LEVEL 82 MG/DL (<150)
== END ==
LOC: M SFHCADAM 12:09
PROVIDERS: ATTEND Family Medicine
DX: F43.22 Adjustment disorder with anxiety (principal); I73.9 Peripheral vascular disease, unspecified; I11.9 Hypertensive heart disease without heart failure; E78.2 Mixed hyperlipidemia; E74.9 Disorder of carbohydrate metabolism, unspecified; Z79.899 Other long term (current) drug therapy
CPT/HCPCS: 80053; 80061; 83036; 84439; 84443; 85027; G0463

== ENCOUNTER → 2022-05-13 | Outpatient (CLI) | payer MEDICARE, OTHER ==
[2022-05-13 12:37] LABS: HEMATOCRIT 37.9 % (42.0-52.0); HEMOGLOBIN 11.4 g/dl (13.5-17.5); MEAN CORPUSCULAR HEMOGLOBIN 23.8 pg (27.0-33.0); MEAN CORPUSCULAR HGB CONC 30.1 g/dl (32.0-36.5); PLATELET COUNT, AUTOMATED 312 10^3/uL (150-450); WHITE BLOOD COUNT 5.8 10^3/uL (4.0-10.0)
[2022-05-13 13:12] LABS: ALBUMIN 3.5 GM/DL (3.2-5.2); ALT/SGPT 23 U/L (12-78); BILIRUBIN,TOTAL 0.4 MG/DL (0.2-1.0); BLOOD UREA NITROGEN 25 MG/DL (7-18); CALCIUM LEVEL 9.6 MG/DL (8.8-10.2); CARBON DIOXIDE LEVEL 33 MEQ/L (21-32); CHLORIDE LEVEL 102 MEQ/L (98-107); CHOLESTEROL LEVEL 217 MG/DL (<200); CHOLESTEROL RISK RATIO 4.018 (<5); CREATININE FOR GFR 1.16 MG/DL (0.70-1.30); GLOMERULAR FILTRATION RATE > 60.0 (>42); GLUCOSE, FASTING 103 MG/DL (70-100); HDL CHOLESTEROL 54 MG/DL (>40); LDL CHOLESTEROL 142 MG/DL (<100); NON-HDL-C 163 MG/DL; POTASSIUM SERUM 4.2 MEQ/L (3.5-5.1); SODIUM LEVEL 139 MEQ/L (136-145); TOTAL PROTEIN 7.8 GM/DL (6.4-8.2); TRIGLYCERIDES LEVEL 103 MG/DL (<150)
[2022-05-13 15:21] LABS: HEMOGLOBIN A1c 5.9 %
== END ==
LOC: M WUC 10:24
PROVIDERS: ATTEND Family Medicine
DX: E74.9 Disorder of carbohydrate metabolism, unspecified (principal); I73.9 Peripheral vascular disease, unspecified; E78.2 Mixed hyperlipidemia; Z79.899 Other long term (current) drug therapy

== ENCOUNTER → 2022-05-21 | Outpatient (REF) | payer MEDICARE, OTHER ==
[2022-05-21 17:49] LABS: FERRITIN 9 NG/ML (26-388); IRON (FE) 27 UG/DL (65-175); PERCENT SATURATION 5.6 % (19.7-50.0); TOTAL IRON BINDING CAPACITY 480 UG/DL (250-450); TOTAL PROTEIN 7.7 GM/DL (6.4-8.2)
[2022-05-21 18:32] LABS: VITAMIN B12 LEVEL 288 PG/ML (247-911)
[2022-05-22 13:35] LABS: ALBUMIN % 53.3 % (55.8-66.1); ALPHA-1-GLOBULIN % 4.9 % (2.9-4.9); ALPHA-2-GLOBULINS % 10.7 % (7.1-11.8); BETA-2-GLOBULINS % 4.9 % (3.2-6.5)
[2022-05-22 13:36] LABS: ALPHA-1-GLOBULINS 0.38 GM/DL (0.17-0.41); ALPHA-2-GLOBULINS 0.82 GM/DL (0.42-0.99); BETA-1-GLOBULINS 0.54 GM/DL (0.28-0.60); BETA-2-GLOBULINS 0.38 GM/DL (0.19-0.55); GAMMA GLOBULIN % 19.2 % (11.1-18.8); GAMMA GLOBULINS 1.48 GM/DL (0.65-1.58)
== END ==
LOC: M SFHCADAM 11:20
PROVIDERS: ATTEND Family Medicine
DX: D64.9 Anemia, unspecified (principal)

== ENCOUNTER → 2022-06-06 | Outpatient (REF) | payer MEDICARE, OTHER | LOC: M SFHCWOUN 16:58 | PROVIDERS: ATTEND Surgery | DX: L97.822 Non-pressure chronic ulcer of other part of left lower leg with fat layer exposed (principal) ==

== ENCOUNTER → 2022-10-28 | Outpatient (REF) | payer MEDICARE, OTHER ==
[~2022-10-28] MED LIST changes: +ALBU90AE IH; +CLOP75TA99 PO; +CYAN500T14 PO; +FERR1TAB8 PO; -PLAV1TAB2 PO
[2022-10-28 16:43] LABS: HEMATOCRIT 46.7 % (42.0-52.0); HEMOGLOBIN 14.6 g/dl (13.5-17.5); MEAN CORPUSCULAR HEMOGLOBIN 26.9 pg (27.0-33.0); MEAN CORPUSCULAR HGB CONC 31.3 g/dl (32.0-36.5); PLATELET COUNT, AUTOMATED 324 10^3/uL (150-450); RED BLOOD COUNT 5.43 10^6/uL (4.30-6.10)
[2022-10-28 18:24] LABS: IRON (FE) 72 UG/DL (65-175)
[2022-10-28 18:25] LABS: BLOOD UREA NITROGEN 16 MG/DL (9-23); CALCIUM LEVEL 9.9 MG/DL (8.3-10.6); CARBON DIOXIDE LEVEL 28 MMOL/L (20-31); CHLORIDE LEVEL 101 MMOL/L (98-107); CREATININE FOR GFR 0.93 MG/DL (0.70-1.30); GLOMERULAR FILTRATION RATE > 60.0 (>42); GLUCOSE, FASTING 93 MG/DL (74-106); PERCENT SATURATION 20.9 % (19.7-50.0); POTASSIUM SERUM 4.6 MMOL/L (3.5-5.1); SODIUM LEVEL 138 MMOL/L (136-145); TOTAL IRON BINDING CAPACITY 344 UG/DL (250-425)
[2022-10-29 15:05] LABS: FERRITIN 49.7 NG/ML (10.5-307.3); VITAMIN B12 LEVEL 1059 PG/ML (211-911)
== END ==
LOC: M SFHCCAPE 09:33
PROVIDERS: ATTEND Family Medicine
DX: I11.9 Hypertensive heart disease without heart failure (principal); D50.0 Iron deficiency anemia secondary to blood loss (chronic); E53.8 Deficiency of other specified B group vitamins; R77.8 Other specified abnormalities of plasma proteins

== ENCOUNTER → 2022-11-25 | Outpatient (CLI) | payer MEDICARE, BC, OTHER | LOC: M RAD 10:46 | PROVIDERS: ATTEND Surgery | DX: L97.822 Non-pressure chronic ulcer of other part of left lower leg with fat layer exposed (principal) ==

== ENCOUNTER → 2022-12-01 | Outpatient (CLI) | payer MEDICARE, BC, OTHER | LOC: M LABSMTC 11:03 | PROVIDERS: ATTEND Anesthesiology | DX: Z01.812 Encounter for preprocedural laboratory examination (principal) ==

== ENCOUNTER 2022-12-04 11:19 | Day surgery (SDC) | payer MEDICARE, BC, OTHER ==
[~2022-12-04] VITALS: Ht 175.3 cm; Wt 90.3 kg
[~2022-12-04 11:19] MED LIST changes: +NS 1,000 ML IV ONE
[2022-12-04] MEDS ORDERED: fentaNYL 100 MCG/2 ML INJECTION As Ordered ONE (12:56)
[2022-12-04] MEDS ORDERED: LIDOCAINE 2% 100MG/5ML SDV (FOR ANES.) As Ordered ONE (13:40)
[2022-12-04] MEDS ORDERED: propofoL 200 MG/20 ML VIAL As Ordered ONE (13:40)
[2022-12-04 13:45] VITALS: BP 145/67
== END 2022-12-04 13:51 | disposition home or self-care (01) ==
LOC: M OPP 11:19
PROVIDERS: ATTEND Internal Medicine Gastroenterology
DX: D12.0 Benign neoplasm of cecum (principal); D12.4 Benign neoplasm of descending colon; K57.30 Diverticulosis of large intestine without perforation or abscess without bleeding; K64.8 Other hemorrhoids; D50.9 Iron deficiency anemia, unspecified; K29.70 Gastritis, unspecified, without bleeding; I10 Essential (primary) hypertension; E78.00 Pure hypercholesterolemia, unspecified; J44.9 Chronic obstructive pulmonary disease, unspecified; N40.0 Benign prostatic hyperplasia without lower urinary tract symptoms; Z79.02 Long term (current) use of antithrombotics/antiplatelets; Z79.52 Long term (current) use of systemic steroids; Z79.82 Long term (current) use of aspirin; Z79.899 Other long term (current) drug therapy; Z88.8 Allergy status to other drugs, medicaments and biological substances; Z91.030 Bee allergy status; Z95.820 Peripheral vascular angioplasty status with implants and grafts; Z87.891 Personal history of nicotine dependence
CPT/HCPCS: 43239; 45385; 88305; J3010

== ENCOUNTER → 2022-12-10 | Outpatient (CLI) | payer MEDICARE, BC, OTHER ==
[~2022-12-10] MED LIST changes: +GLUCAGON INJ 1MG VIAL As Ordered ONE; +ISOVUE-370 76% 100ML VIAL As Ordered ONE; +NEULUMEX 0.1% SUSPENSION 450ML BOTTLE (FORMERLY VOLUMEN) As Ordered ONE; -NS 1,000 ML IV ONE
== END ==
LOC: M RAD 12:01
PROVIDERS: ATTEND Physician Assistant Medical
DX: D50.9 Iron deficiency anemia, unspecified (principal); K59.00 Constipation, unspecified; I25.811 Atherosclerosis of native coronary artery of transplanted heart without angina pectoris
CPT/HCPCS: 74177; J1610; Q9967

== ENCOUNTER → 2022-12-19 | Outpatient (CLI) | payer MEDICARE, BC, OTHER ==
[~2022-12-19] MED LIST changes: +E-Z-GAS II EFFERVESCENT PACKET (SODIUM BICARB./CITRIC ACID/SIMETHICONE) As Ordered ONE; +E-Z-HD 98% w/w 340GM SUSP BTL As Ordered ONE; +E-Z-PAQUE 96% w/w SUSP 176GM BTL As Ordered ONE; -GLUCAGON INJ 1MG VIAL As Ordered ONE; -ISOVUE-370 76% 100ML VIAL As Ordered ONE; -NEULUMEX 0.1% SUSPENSION 450ML BOTTLE (FORMERLY VOLUMEN) As Ordered ONE
== END ==
LOC: M RAD 09:46
PROVIDERS: ATTEND Family Medicine
DX: R13.10 Dysphagia, unspecified (principal)

== ENCOUNTER → 2023-02-17 | Outpatient (CLI) | payer MEDICARE, BC, OTHER ==
[~2023-02-17] MED LIST changes: -E-Z-GAS II EFFERVESCENT PACKET (SODIUM BICARB./CITRIC ACID/SIMETHICONE) As Ordered ONE; -E-Z-HD 98% w/w 340GM SUSP BTL As Ordered ONE; -E-Z-PAQUE 96% w/w SUSP 176GM BTL As Ordered ONE
== END ==
LOC: M PLAIMG 10:12
PROVIDERS: ATTEND Internal Medicine Pulmonary Disease
DX: R06.02 Shortness of breath (principal)

== ENCOUNTER → 2023-02-19 | Outpatient (REF) | payer MEDICARE, BC, OTHER | LOC: M SFHCWOUN 17:59 | PROVIDERS: ATTEND Surgery | DX: I87.312 Chronic venous hypertension (idiopathic) with ulcer of left lower extremity (principal); L97.822 Non-pressure chronic ulcer of other part of left lower leg with fat layer exposed ==

== ENCOUNTER → 2023-05-12 | Outpatient (REF) | payer MEDICARE, OTHER ==
[2023-05-12 18:12] LABS: HEMATOCRIT 38.8 % (42.0-52.0); HEMOGLOBIN 11.6 g/dl (13.5-17.5); MEAN CORPUSCULAR HGB CONC 29.9 g/dl (32.0-36.5); MEAN CORPUSCULAR VOLUME 83.6 fl (80.0-96.0); PLATELET COUNT, AUTOMATED 385 10^3/uL (150-450); RED BLOOD COUNT 4.64 10^6/uL (4.30-6.10); WHITE BLOOD COUNT 8.3 10^3/uL (4.0-10.0)
[2023-05-12 18:21] LABS: HEMOGLOBIN A1c 5.2 % (4.0-6.0)
[2023-05-12 18:53] LABS: ALBUMIN 3.3 G/DL (3.2-5.2); ALKALINE PHOSPHATASE 73 U/L (46-116); ALT/SGPT 17 U/L (7.0-40); AST/SGOT 35 U/L (<34); BILIRUBIN,TOTAL 0.2 MG/DL (0.3-1.2); BLOOD UREA NITROGEN 32 MG/DL (9-23); CALCIUM LEVEL 9.3 MG/DL (8.3-10.6); CARBON DIOXIDE LEVEL 26 MMOL/L (20-31); CHLORIDE LEVEL 105 MMOL/L (98-107); CHOLESTEROL LEVEL 154 MG/DL (<200); CHOLESTEROL RISK RATIO 4.01 (<5); CREATININE FOR GFR 1.06 MG/DL (0.70-1.30); GLOMERULAR FILTRATION RATE > 60.0 (>42); GLUCOSE, FASTING 92 MG/DL (74-106); HDL CHOLESTEROL 38.4 MG/DL (>40); NON-HDL-C 115.6 MG/DL; SODIUM LEVEL 142 MMOL/L (136-145); TOTAL PROTEIN 7.3 G/DL (5.7-8.2); TRIGLYCERIDES LEVEL 168 MG/DL (<150)
== END ==
LOC: M SFHCCAPE 09:35
PROVIDERS: ATTEND Family Medicine
DX: E78.2 Mixed hyperlipidemia (principal); E74.9 Disorder of carbohydrate metabolism, unspecified; L97.822 Non-pressure chronic ulcer of other part of left lower leg with fat layer exposed; I70.249 Atherosclerosis of native arteries of left leg with ulceration of unspecified site; I70.435 Atherosclerosis of autologous vein bypass graft(s) of the right leg with ulceration of other part of foot; I70.4 Atherosclerosis of autologous vein bypass graft(s) of the extremities; Z79.899 Other long term (current) drug therapy

== ENCOUNTER → 2023-05-19 | Outpatient (CLI) | payer MEDICARE, BC, OTHER ==
[~2023-05-19] MED LIST changes: +ISOVUE-370 76% 100ML VIAL As Ordered ONE
== END ==
LOC: M RAD 10:03
PROVIDERS: ATTEND Physician Assistant
DX: I70.1 Atherosclerosis of renal artery (principal); I74.5 Embolism and thrombosis of iliac artery; N28.1 Cyst of kidney, acquired; J43.9 Emphysema, unspecified; R91.8 Other nonspecific abnormal finding of lung field; N40.0 Benign prostatic hyperplasia without lower urinary tract symptoms; I70.435 Atherosclerosis of autologous vein bypass graft(s) of the right leg with ulceration of other part of foot; I70.4 Atherosclerosis of autologous vein bypass graft(s) of the extremities

== ENCOUNTER → 2023-07-30 | Outpatient (CLI) | payer MEDICARE, BC, OTHER ==
[~2023-07-30] MED LIST changes: -ISOVUE-370 76% 100ML VIAL As Ordered ONE
== END ==
LOC: M RAD 14:14
PROVIDERS: ATTEND Surgery Vascular Surgery
DX: I83.92 Asymptomatic varicose veins of left lower extremity (principal); I83.812 Varicose veins of left lower extremity with pain

== ENCOUNTER 2023-08-04 11:13 | Inpatient (IN) | payer MEDICARE, BC, OTHER ==
[~2023-08-04] VITALS: Ht 175.3 cm; Wt 84.2 kg
[2023-08-04] VITALS (10 sets, daily range): BP systolic 109–161; BP diastolic 48–70; TEMP 97.7–99.4; O2SAT 88–99
[2023-08-04] MEDS: FENOFIBRATE 48MG TABLET (TRICOR) PO SCH (09:00)
[2023-08-04] MEDS: EZETIMIBE 10MG TABLET (ZETIA) PO SCH (09:00)
[2023-08-04] MEDS: MIRTAZAPINE 15 MG TAB PO SCH (09:00)
[2023-08-04 12:27] LABS: VENOUS BASE EXCESS -1.9 (-2.0-2.0); VENOUS HCO3 23.6 MMOL/L (23.0-27.0); VENOUS O2 SATURATION 49.3 % (60.0-80.0); VENOUS PARTIAL PRESSURE CO2 44.3 mmHg (38.0-50.0); VENOUS PARTIAL PRESSURE O2 30.9 mmHg (30.0-50.0); VENOUS PH 7.345 UNITS (7.330-7.430); VENOUS STANDARD HCO3 22.3 MMOL/L
[2023-08-04 12:33] LABS: BASO % 0.4 % (0.0-1.0); EOS # 0.2 10^3/uL (0.0-0.5); EOS % 2.6 % (0.0-3.0); HEMATOCRIT 21.5 % (42.0-52.0); LYMPH # 0.9 10^3/uL (1.5-5.0); LYMPH % 11.1 % (24.0-44.0); MEAN CORPUSCULAR HEMOGLOBIN 25.2 pg (27.0-33.0); MEAN CORPUSCULAR HGB CONC 29.8 g/dl (32.0-36.5); MEAN CORPUSCULAR VOLUME 84.6 fl (80.0-96.0); MONO # 0.7 10^3/uL (0.0-0.8); MONO % 8.8 % (2.0-8.0); NEUTROPHILS # 6.5 10^3/uL (1.5-8.5); NEUTROPHILS % 76.7 % (36.0-66.0); PLATELET COUNT, AUTOMATED 380 10^3/uL (150-450); RED BLOOD COUNT 2.54 10^6/uL (4.30-6.10); WHITE BLOOD COUNT 8.4 10^3/uL (4.0-10.0)
[2023-08-04 12:35] LABS: HEMOGLOBIN 6.4 g/dl (13.5-17.5)
[2023-08-04] MEDS ORDERED: EZET10TA21 PO (12:36)
[2023-08-04] MEDS ORDERED: LISI20TA33 PO (12:36)
[2023-08-04] MEDS ORDERED: PANTOPRAZOLE 40MG VIAL IV ONE (12:50)
[2023-08-04 13:06] LABS: ALBUMIN 2.8 G/DL (3.2-5.2); BILIRUBIN,DIRECT 0.2 MG/DL (<0.4); BILIRUBIN,TOTAL 0.3 MG/DL (0.3-1.2); CALCIUM LEVEL 9.3 MG/DL (8.3-10.6); CREATININE FOR GFR 2.61 MG/DL (0.70-1.30); GLOMERULAR FILTRATION RATE 25.4 (>42); MAGNESIUM LEVEL 2.1 MG/DL (1.8-2.4); POTASSIUM SERUM 4.9 MMOL/L (3.5-5.1); TOTAL PROTEIN 6.4 G/DL (5.7-8.2)
[2023-08-04 13:10] LABS: THYROID STIMULATING HORMONE 0.871 uIU/ML (0.55-4.78)
[2023-08-04] MEDS ORDERED: MED REC IN PROGRESS XX SCH (13:35)
[2023-08-04 14:52] LABS: FERRITIN 18.3 NG/ML (10.5-307.3); URIC ACID 13.3 MG/DL (3.7-9.2)
[2023-08-04] MEDS ORDERED: NS 1,000 ML IV SCH (14:55)
[2023-08-04] MEDS ORDERED: MIRT-10 PO (15:53)
[2023-08-04] MEDS ORDERED: SANT250O8 TOP (15:56)
[2023-08-04] MEDS ORDERED: HOME MED LIST COMPLETE! XX SCH (16:00)
[2023-08-04] MEDS ORDERED: amLODIPine 5 MG TAB PO SCH (17:00)
[2023-08-04] MEDS ORDERED: MOM 30ML SUSPENSION UDC PO PRN (17:40)
[2023-08-04] MEDS ORDERED: SENOKOT S TAB PO PRN (17:40)
[2023-08-04] MEDS ORDERED: TAMSULOSIN 0.4 MG CAP PO ONE (17:40)
[2023-08-04 18:09] LABS: TOTAL PROTEIN,RANDOM URINE 34.8 MG/DL (0.0-14.0)
[2023-08-04 18:10] LABS: CREATININE,RANDOM URINE 150.1 MG/DL
[2023-08-04] MEDS: ADVAIR HFA 115/21MCG INHALER INH SCH (19:32)
[2023-08-04] MEDS ORDERED: ISOSORBIDE DIN (ISORDIL) 10MG TAB PO SCH (21:00)
[2023-08-04] MEDS: PANTOPRAZOLE 40MG VIAL IV SCH (21:15)
[2023-08-04 21:34] LABS: HEMATOCRIT 27.4 % (42.0-52.0)
[2023-08-04 21:39] LABS: HEMOGLOBIN 8.6 g/dl (13.5-17.5)
[2023-08-04 22:03] LABS: CALCIUM LEVEL 8.9 MG/DL (8.3-10.6); CREATININE FOR GFR 2.14 MG/DL (0.70-1.30); POTASSIUM SERUM 4.5 MMOL/L (3.5-5.1)
[2023-08-05] VITALS (21 sets, daily range): BP systolic 90–172; BP diastolic 45–75; TEMP 97.9–100.4; O2SAT 83–99
[2023-08-05] MEDS ORDERED: ACETAMINOPHEN TAB 650MG DOSE (2X325MG) PO PRN (03:55)
[2023-08-05 05:11] LABS: HEMATOCRIT 22.1 % (42.0-52.0); HEMOGLOBIN 7.1 g/dl (13.5-17.5); MEAN CORPUSCULAR HEMOGLOBIN 26.6 pg (27.0-33.0); MEAN CORPUSCULAR HGB CONC 32.1 g/dl (32.0-36.5); MEAN CORPUSCULAR VOLUME 82.8 fl (80.0-96.0); RED BLOOD COUNT 2.67 10^6/uL (4.30-6.10)
[2023-08-05 05:17] LABS: PLATELET COUNT, AUTOMATED 246 10^3/uL (150-450)
[2023-08-05 05:37] LABS: CALCIUM LEVEL 8.1 MG/DL (8.3-10.6); CREATININE FOR GFR 1.77 MG/DL (0.70-1.30); GLOMERULAR FILTRATION RATE 39.8 (>42); POTASSIUM SERUM 4.3 MMOL/L (3.5-5.1)
[2023-08-05] MEDS ORDERED: NS 1,000 ML IV ONE (07:30)
[2023-08-05] MEDS: ADVAIR HFA 115/21MCG INHALER INH SCH ×2 (07:55→20:01)
[2023-08-05] MEDS: FENOFIBRATE 48MG TABLET (TRICOR) PO SCH (08:41)
[2023-08-05] MEDS: MIRTAZAPINE 15 MG TAB PO SCH (08:41)
[2023-08-05] MEDS: MIDODRINE 5 MG TAB PO SCH ×3 (08:41→15:39)
[2023-08-05] MEDS: EZETIMIBE 10MG TABLET (ZETIA) PO SCH (08:41)
[2023-08-05] MEDS: PANTOPRAZOLE 40MG VIAL IV SCH ×2 (08:42→21:03)
[2023-08-05 12:14] LABS: HEMATOCRIT 25.5 % (42.0-52.0); HEMOGLOBIN 8.1 g/dl (13.5-17.5)
[2023-08-05] MEDS: TAMSULOSIN 0.4 MG CAP PO SCH (21:03)
[2023-08-05 21:10] LABS: HEMATOCRIT 32.5 % (42.0-52.0)
[2023-08-05 21:11] LABS: HEMOGLOBIN 10.1 g/dl (13.5-17.5)
[2023-08-05 21:53] LABS: BLOOD UREA NITROGEN 38 MG/DL (9-23); CALCIUM LEVEL 8.7 MG/DL (8.3-10.6); CARBON DIOXIDE LEVEL 28 MMOL/L (20-31); CHLORIDE LEVEL 107 MMOL/L (98-107); CREATININE FOR GFR 1.16 MG/DL (0.70-1.30); GLOMERULAR FILTRATION RATE > 60.0 (>42); GLUCOSE, FASTING 108 MG/DL (74-106); POTASSIUM SERUM 4.5 MMOL/L (3.5-5.1); SODIUM LEVEL 143 MMOL/L (136-145)
[2023-08-06 03:17] VITALS: BP 132/61; TEMP 98.6; O2SAT 96
[2023-08-06 03:39] LABS: HEMATOCRIT 28.7 % (42.0-52.0); HEMOGLOBIN 9.3 g/dl (13.5-17.5); MEAN CORPUSCULAR HEMOGLOBIN 27.4 pg (27.0-33.0); MEAN CORPUSCULAR HGB CONC 32.4 g/dl (32.0-36.5); MEAN CORPUSCULAR VOLUME 84.4 fl (80.0-96.0); PLATELET COUNT, AUTOMATED 252 10^3/uL (150-450)
[2023-08-06 04:07] LABS: BLOOD UREA NITROGEN 31 MG/DL (9-23); CALCIUM LEVEL 8.5 MG/DL (8.3-10.6); CARBON DIOXIDE LEVEL 29 MMOL/L (20-31); CHLORIDE LEVEL 108 MMOL/L (98-107); CREATININE FOR GFR 1.12 MG/DL (0.70-1.30); GLOMERULAR FILTRATION RATE > 60.0 (>42); GLUCOSE, FASTING 95 MG/DL (74-106); POTASSIUM SERUM 4.3 MMOL/L (3.5-5.1); SODIUM LEVEL 143 MMOL/L (136-145)
[2023-08-06] MEDS ORDERED: CARA1TAB6 PO (07:23)
[2023-08-06] MEDS: ADVAIR HFA 115/21MCG INHALER INH SCH ×2 (07:54→20:20)
[2023-08-06 07:58] VITALS: BP 137/62; TEMP 98.6; O2SAT 90
[2023-08-06] MEDS ORDERED: SANTYL OINT 30GM TOP SCH (09:00)
[2023-08-06] MEDS ORDERED: ISOVUE-370 76% 100ML VIAL As Ordered ONE (09:05)
[2023-08-06] MEDS: FENOFIBRATE 48MG TABLET (TRICOR) PO SCH (10:06)
[2023-08-06] MEDS: ASPIRIN 81MG CHEW TABLET PO SCH (10:06)
[2023-08-06] MEDS: EZETIMIBE 10MG TABLET (ZETIA) PO SCH (10:06)
[2023-08-06] MEDS: CLOPIDOGREL 75 MG TAB PO SCH (10:07)
[2023-08-06] MEDS: PANTOPRAZOLE 40MG VIAL IV SCH ×2 (10:07→20:42)
[2023-08-06] MEDS: MIRTAZAPINE 15 MG TAB PO SCH (10:07)
[2023-08-06 11:17] LABS: HEMOGLOBIN 9.9 g/dl (13.5-17.5)
[2023-08-06] MEDS ORDERED: SODIUM CHLORIDE 0.9% NASAL GEL 15GM (AYR) PRN (12:15)
[2023-08-06 12:21] LABS: HEMATOCRIT 33.4 % (42.0-52.0); HEMOGLOBIN 10.6 g/dl (13.5-17.5)
[2023-08-06 12:35] LABS: INR 1.12; PROTHROMBIN TIME 14.1 SECONDS (12.5-14.5)
[2023-08-06 12:36] LABS: PARTIAL THROMBOPLASTIN TIME 30.8 SECONDS (24.8-34.2)
[2023-08-06 12:52] LABS: ERYTHROCYTE SEDIMENTATION RATE 62 mm/hr (0-20)
[2023-08-06 13:46] LABS: PROCALCITONIN 0.07 ng/ml
[2023-08-06] MEDS: SODIUM CHLORIDE NASAL 0.65% SPRAY BTL (OCEAN) SCH ×2 (14:34→20:42)
[2023-08-06 15:59] VITALS: BP 136/60; TEMP 98.4; O2SAT 96
[2023-08-06 17:54] LABS: HEMATOCRIT 32.3 % (42.0-52.0); HEMOGLOBIN 10.2 g/dl (13.5-17.5)
[2023-08-06 19:49] VITALS: BP 148/96; TEMP 97.1; O2SAT 97
[2023-08-06] MEDS: TAMSULOSIN 0.4 MG CAP PO SCH (20:43)
[2023-08-06 23:31] LABS: HEMATOCRIT 33.3 % (42.0-52.0); HEMOGLOBIN 10.5 g/dl (13.5-17.5)
[2023-08-07 04:00] VITALS: BP 155/61; TEMP 98.1; O2SAT 95
[2023-08-07 06:49] LABS: HEMATOCRIT 30.4 % (42.0-52.0); HEMOGLOBIN 9.6 g/dl (13.5-17.5); MEAN CORPUSCULAR HEMOGLOBIN 27.1 pg (27.0-33.0); MEAN CORPUSCULAR HGB CONC 31.6 g/dl (32.0-36.5); MEAN CORPUSCULAR VOLUME 85.9 fl (80.0-96.0); PLATELET COUNT, AUTOMATED 296 10^3/uL (150-450); RED BLOOD COUNT 3.54 10^6/uL (4.30-6.10)
[2023-08-07 07:20] LABS: BLOOD UREA NITROGEN 20 MG/DL (9-23); CARBON DIOXIDE LEVEL 31 MMOL/L (20-31); CHLORIDE LEVEL 106 MMOL/L (98-107); CREATININE FOR GFR 1.02 MG/DL (0.70-1.30); GLOMERULAR FILTRATION RATE > 60.0 (>42); GLUCOSE, FASTING 101 MG/DL (74-106); POTASSIUM SERUM 4.3 MMOL/L (3.5-5.1); SODIUM LEVEL 143 MMOL/L (136-145)
[2023-08-07 08:00] VITALS: BP 166/67; TEMP 97.7; O2SAT 96
[2023-08-07] MEDS: ADVAIR HFA 115/21MCG INHALER INH SCH (08:04)
[2023-08-07] MEDS ORDERED: ASPI81CH8 PO (08:10)
[2023-08-07] MEDS ORDERED: SELF1KIT MC (08:12)
[2023-08-07] MEDS: CLOPIDOGREL 75 MG TAB PO SCH (09:00)
[2023-08-07] MEDS ORDERED: IPRATROPIUM 0.5MG/ALBUTEROL 2.5MG INH SOL UD 3ML (DUONEB) NEB SCH (09:00)
[2023-08-07] MEDS: PANTOPRAZOLE 40MG VIAL IV SCH (09:45)
[2023-08-07] MEDS: FENOFIBRATE 48MG TABLET (TRICOR) PO SCH (09:45)
[2023-08-07] MEDS: ASPIRIN 81MG CHEW TABLET PO SCH (09:46)
[2023-08-07] MEDS: EZETIMIBE 10MG TABLET (ZETIA) PO SCH (09:46)
[2023-08-07] MEDS: MIRTAZAPINE 15 MG TAB PO SCH (09:47)
[2023-08-07] MEDS: SODIUM CHLORIDE NASAL 0.65% SPRAY BTL (OCEAN) SCH (09:48)
[2023-08-07] MEDS ORDERED: FUROSEMIDE 40MG/4ML VIAL IV ONE (10:00)
== END 2023-08-07 11:03 | disposition home health service (06) | DRG 378 ==
LOC: EDBD 11:13 → M ED 11:13 → M ED INP 13:27 → ENRESERV 13:49 → M PCU 14:49
PROVIDERS: ADMIT General Practice; ATTEND General Practice
PROC: 30233N1 Transfusion of Nonautologous Red Blood Cells into Peripheral Vein, Percutaneous Approach (ICD-10-PCS; principal; 2023-08-04)
DX: K92.2 Gastrointestinal hemorrhage, unspecified (principal); D62 Acute posthemorrhagic anemia; N17.9 Acute kidney failure, unspecified; I73.9 Peripheral vascular disease, unspecified; J44.9 Chronic obstructive pulmonary disease, unspecified; I10 Essential (primary) hypertension; E78.00 Pure hypercholesterolemia, unspecified; R73.03 Prediabetes; E55.9 Vitamin D deficiency, unspecified; K21.9 Gastro-esophageal reflux disease without esophagitis; M51.36 Other intervertebral disc degeneration, lumbar region; N13.9 Obstructive and reflux uropathy, unspecified; R04.0 Epistaxis; N20.0 Calculus of kidney; I95.9 Hypotension, unspecified; N40.1 Benign prostatic hyperplasia with lower urinary tract symptoms; N52.9 Male erectile dysfunction, unspecified; R33.9 Retention of urine, unspecified; J30.9 Allergic rhinitis, unspecified; Z95.820 Peripheral vascular angioplasty status with implants and grafts; Z98.41 Cataract extraction status, right eye; Z98.42 Cataract extraction status, left eye; Z87.891 Personal history of nicotine dependence; Z79.02 Long term (current) use of antithrombotics/antiplatelets; Z79.82 Long term (current) use of aspirin; Z79.899 Other long term (current) drug therapy; Z88.8 Allergy status to other drugs, medicaments and biological substances; Z91.030 Bee allergy status

== ENCOUNTER → 2023-08-13 | Outpatient (REF) | payer MEDICARE, OTHER ==
[~2023-08-13] MED LIST changes: +ASPI81CH8 PO; +CARA1TAB6 PO; +LISI20TA33 PO; +MIRT-10 PO; +SANT250O8 TOP; +SELF1KIT MC
[2023-08-13 16:43] LABS: BASO # 0.1 10^3/uL (0.0-0.2); BASO % 0.6 % (0.0-1.0); EOS # 0.2 10^3/uL (0.0-0.5); EOS % 2.8 % (0.0-3.0); HEMATOCRIT 36.2 % (42.0-52.0); HEMOGLOBIN 10.9 g/dl (13.5-17.5); LYMPH # 1.1 10^3/uL (1.5-5.0); MEAN CORPUSCULAR HEMOGLOBIN 26.7 pg (27.0-33.0); MEAN CORPUSCULAR HGB CONC 30.1 g/dl (32.0-36.5); MEAN CORPUSCULAR VOLUME 88.5 fl (80.0-96.0); MONO # 0.8 10^3/uL (0.0-0.8); MONO % 8.7 % (2.0-8.0); NEUTROPHILS # 6.5 10^3/uL (1.5-8.5); NEUTROPHILS % 74.7 % (36.0-66.0); PLATELET COUNT, AUTOMATED 415 10^3/uL (150-450); RED BLOOD COUNT 4.09 10^6/uL (4.30-6.10); WHITE BLOOD COUNT 8.7 10^3/uL (4.0-10.0)
[2023-08-13 17:01] LABS: CALCIUM LEVEL 9.5 MG/DL (8.3-10.6); CREATININE FOR GFR 1.38 MG/DL (0.70-1.30); GLOMERULAR FILTRATION RATE 53.1 (>42); POTASSIUM SERUM 4.8 MMOL/L (3.5-5.1)
== END ==
LOC: M SFHCADAM 13:35
PROVIDERS: ATTEND Physician Assistant
DX: K92.2 Gastrointestinal hemorrhage, unspecified (principal)

== ENCOUNTER → 2023-11-19 | Outpatient (REF) | payer MEDICARE, BC ==
[2023-11-19 17:26] LABS: HEMATOCRIT 37.2 % (42.0-52.0); HEMOGLOBIN 10.9 g/dl (13.5-17.5); MEAN CORPUSCULAR HEMOGLOBIN 23.6 pg (27.0-33.0); MEAN CORPUSCULAR HGB CONC 29.3 g/dl (32.0-36.5); MEAN CORPUSCULAR VOLUME 80.7 fl (80.0-96.0); PLATELET COUNT, AUTOMATED 381 10^3/uL (150-450); RED BLOOD COUNT 4.61 10^6/uL (4.30-6.10); WHITE BLOOD COUNT 8.1 10^3/uL (4.0-10.0)
[2023-11-19 17:50] LABS: ALBUMIN 3.6 G/DL (3.2-5.2); ALKALINE PHOSPHATASE 84 U/L (46-116); ALT/SGPT 11 U/L (7.0-40); AST/SGOT 15 U/L (<34); BILIRUBIN,TOTAL 0.3 MG/DL (0.3-1.2); BLOOD UREA NITROGEN 33 MG/DL (9-23); CALCIUM LEVEL 9.6 MG/DL (8.3-10.6); CARBON DIOXIDE LEVEL 30 MMOL/L (20-31); CHLORIDE LEVEL 103 MMOL/L (98-107); CHOLESTEROL LEVEL 137 MG/DL (<200); GLOMERULAR FILTRATION RATE > 60.0 (>42); GLUCOSE, FASTING 91 MG/DL (74-106); HDL CHOLESTEROL 39.1 MG/DL (>40); LDL CHOLESTEROL 65.7 MG/DL (<100); NON-HDL-C 97.9 MG/DL; POTASSIUM SERUM 4.7 MMOL/L (3.5-5.1); SODIUM LEVEL 139 MMOL/L (136-145); TOTAL PROTEIN 7.4 G/DL (5.7-8.2); TRIGLYCERIDES LEVEL 161 MG/DL (<150)
[2023-11-19 17:52] LABS: PSA SCREENING 3.45 NG/ML (< 4.00)
== END ==
LOC: M SFHCCAPE 09:34
PROVIDERS: ATTEND Family Medicine
DX: E78.2 Mixed hyperlipidemia (principal); I73.9 Peripheral vascular disease, unspecified; Z12.5 Encounter for screening for malignant neoplasm of prostate
CPT/HCPCS: 80053; 80061; 85027; G0103

== ENCOUNTER → 2023-11-25 | Outpatient (REF) | payer MEDICARE, BC, OTHER ==
[2023-11-25 13:25] LABS: FERRITIN 16.7 NG/ML (10.5-307.3)
[2023-11-25 13:26] LABS: FOLATE > 24.00 NG/ML (>5.4)
[2023-11-25 13:28] LABS: VITAMIN B12 LEVEL 474 PG/ML (211-911)
[2023-11-25 13:29] LABS: IRON (FE) 24 UG/DL (65-175); PERCENT SATURATION 6.1 % (19.7-50.0); TOTAL IRON BINDING CAPACITY 392 UG/DL (250-425)
== END ==
LOC: M SFHCADAM 11:34
PROVIDERS: ATTEND Family Medicine
DX: D64.9 Anemia, unspecified (principal)

== ENCOUNTER → 2024-04-14 | Outpatient (REF) | payer MEDICARE, BC ==
[~2024-04-14] MED LIST changes: -ALBU90AE IH; +ALBU90AE2 IH
[2024-04-14 17:26] LABS: HEMATOCRIT 36.6 % (42.0-52.0); HEMOGLOBIN 11.2 g/dl (13.5-17.5); MEAN CORPUSCULAR HEMOGLOBIN 25.8 pg (27.0-33.0); MEAN CORPUSCULAR HGB CONC 30.6 g/dl (32.0-36.5); MEAN CORPUSCULAR VOLUME 84.3 fl (80.0-96.0); PLATELET COUNT, AUTOMATED 344 10^3/uL (150-450); RED BLOOD COUNT 4.34 10^6/uL (4.30-6.10); WHITE BLOOD COUNT 6.7 10^3/uL (4.0-10.0)
[2024-04-14 17:48] LABS: PERCENT SATURATION 9.6 % (19.7-50.0)
[2024-04-14 17:50] LABS: FERRITIN 24.3 NG/ML (10.5-307.3)
== END ==
LOC: M SFHCCAPE 09:37
PROVIDERS: ATTEND Family Medicine
DX: D53.9 Nutritional anemia, unspecified (principal)

== ENCOUNTER → 2024-08-02 | Outpatient (REF) | payer MEDICARE, BC ==
[2024-08-03 19:25] LABS: HEMATOCRIT 35.1 % (42.0-52.0); HEMOGLOBIN 10.4 g/dl (13.5-17.5); MEAN CORPUSCULAR HGB CONC 29.6 g/dl (32.0-36.5); MEAN CORPUSCULAR VOLUME 84.4 fl (80.0-96.0); PLATELET COUNT, AUTOMATED 382 10^3/uL (150-450); RED BLOOD COUNT 4.16 10^6/uL (4.30-6.10); WHITE BLOOD COUNT 8.6 10^3/uL (4.0-10.0)
[2024-08-03 19:43] LABS: IRON (FE) 221 UG/DL (65-175); PERCENT SATURATION 52.7 % (19.7-50.0); TOTAL IRON BINDING CAPACITY 419 UG/DL (250-425)
[2024-08-03 19:44] LABS: ALBUMIN 3.4 G/DL (3.2-5.2); ALKALINE PHOSPHATASE 80 U/L (40-129); ALT/SGPT 11 U/L (7.0-40); AST/SGOT 17 U/L (<34); BILIRUBIN,TOTAL 0.3 MG/DL (0.3-1.2); BLOOD UREA NITROGEN 22 MG/DL (9-23); CALCIUM LEVEL 9.8 MG/DL (8.3-10.6); CARBON DIOXIDE LEVEL 29 MMOL/L (20-31); CHLORIDE LEVEL 105 MMOL/L (98-107); CHOLESTEROL LEVEL 180 MG/DL (<200); CHOLESTEROL RISK RATIO 4.16 (<5); CREATININE FOR GFR 1.12 MG/DL (0.70-1.30); GLOMERULAR FILTRATION RATE > 60.0 (>42); GLUCOSE, FASTING 92 MG/DL (74-106); HDL CHOLESTEROL 43.2 MG/DL (>40); NON-HDL-C 136.8 MG/DL; SODIUM LEVEL 140 MMOL/L (136-145); TOTAL PROTEIN 7.8 G/DL (5.7-8.2); TRIGLYCERIDES LEVEL 129 MG/DL (<150)
[2024-08-03 20:08] LABS: HEMOGLOBIN A1c 5.2 % (4.0-6.0)
== END ==
LOC: M SFHCCAPE 10:21
PROVIDERS: ATTEND Family Medicine
DX: D64.9 Anemia, unspecified (principal); E74.9 Disorder of carbohydrate metabolism, unspecified; E78.2 Mixed hyperlipidemia; Z79.899 Other long term (current) drug therapy

== ENCOUNTER → 2024-08-31 | Outpatient (CLI) | payer MEDICARE, BC ==
[~2024-08-31] VITALS: Ht 177.8 cm; Wt 95.0 kg
[~2024-08-31] MED LIST changes: +ALBUTEROL SULFATE 2.5MG/0.5ML INH NEB SOLN INH PRN; +EPINEPHrine INJ 1 MG/ML 1ML AMP IM PRN; +NS 1,000 ML IV SCH; +diphenhydrAMINE 50MG/ML VIAL IV PRN; +methylPREDNISolone 125MG 2ML VIAL IV PRN
[2024-08-31 11:45] VITALS: BP 166/86; O2SAT 97
[2024-08-31] MEDS: diphenhydrAMINE 50MG CAP PO ONE (11:57)
[2024-08-31] MEDS: methylPREDNISolone 40MG 1ML VIAL IV ONE (11:58)
[2024-08-31] MEDS: IRON SUCROSE 25 MG in NS 23.75 ML IV ONE (12:29)
[2024-08-31] MEDS: IRON SUCROSE 375 MG in NS 250 ML IV ONE (13:16)
[2024-08-31 14:15] VITALS: BP 160/72; O2SAT 96
[2024-08-31 15:30] VITALS: BP 158/79; O2SAT 99
[2024-08-31 15:58] VITALS: BP 150/70; O2SAT 97
== END ==
LOC: M INFU 11:14
PROVIDERS: ATTEND Family Medicine
DX: D50.9 Iron deficiency anemia, unspecified (principal); Z88.8 Allergy status to other drugs, medicaments and biological substances
CPT/HCPCS: 96365; 96366; 96375; J1756; J2919

== ENCOUNTER 2024-09-07 12:00 | Outpatient (CLI) | payer MEDICARE, BC ==
[~2024-09-07] VITALS: Ht 175.3 cm; Wt 91.8 kg
[2024-09-07 11:50] VITALS: BP 166/76; O2SAT 95
[2024-09-07] MEDS: methylPREDNISolone 40MG 1ML VIAL IV ONE (12:12)
[2024-09-07] MEDS: diphenhydrAMINE 50MG PO PRIOR TO INFUSION PO ONE (12:13)
[2024-09-07] MEDS: IRON SUCROSE 400 MG in NS 250 ML OVER 2.5 HRS IV ONE (12:28)
[2024-09-07 15:05] VITALS: BP 176/82; O2SAT 94
== END 2024-09-07 15:05 ==
LOC: M INFU 12:00
PROVIDERS: ATTEND Family Medicine
DX: D50.9 Iron deficiency anemia, unspecified (principal); Z88.8 Allergy status to other drugs, medicaments and biological substances; Z91.030 Bee allergy status
CPT/HCPCS: 96365; 96366; 96375; J1756; J2919

== ENCOUNTER 2024-09-28 19:45 | Emergency (ER) | payer MEDICARE, BC ==
[~2024-09-28] VITALS: Ht 175.3 cm; Wt 93.5 kg
[~2024-09-28 19:45] MED LIST changes: -ALBUTEROL SULFATE 2.5MG/0.5ML INH NEB SOLN INH PRN; -EPINEPHrine INJ 1 MG/ML 1ML AMP IM PRN; -NS 1,000 ML IV SCH; -diphenhydrAMINE 50MG/ML VIAL IV PRN; -methylPREDNISolone 125MG 2ML VIAL IV PRN
[2024-09-28 20:29] LABS: HEMATOCRIT 35.6 % (42.0-52.0); HEMOGLOBIN 10.8 g/dl (13.5-17.5); MEAN CORPUSCULAR HEMOGLOBIN 25.6 pg (27.0-33.0); MEAN CORPUSCULAR HGB CONC 30.3 g/dl (32.0-36.5); MEAN CORPUSCULAR VOLUME 84.4 fl (80.0-96.0); PLATELET COUNT, AUTOMATED 379 10^3/uL (150-450); RED BLOOD COUNT 4.22 10^6/uL (4.30-6.10); WHITE BLOOD COUNT 18.2 10^3/uL (4.0-10.0)
[2024-09-28 20:41] VITALS: TEMP 99.2
[2024-09-28 20:57] LABS: CK-MB VALUE MASS 61.8 NG/ML (<3.6)
[2024-09-28 20:58] LABS: CALCIUM LEVEL 9.3 MG/DL (8.3-10.6); CREATININE FOR GFR 3.58 MG/DL (0.70-1.30); GLOMERULAR FILTRATION RATE 17.6 (>42); POTASSIUM SERUM 5.1 MMOL/L (3.5-5.1)
[2024-09-28 21:10] LABS: MB/CK RELATIVE INDEX 3.7 (< OR =4)
[2024-09-28] MEDS: AZITHROMYCIN INJ 500 MG, VIAL MATE ADAPTER 1 EACH in NS 250 ML IV ONE (21:41)
[2024-09-28] MEDS: ASPIRIN 81MG CHEW TABLET PO ONE (22:39)
[2024-09-28] MEDS: HEPARIN SOD (PORCINE) 5000UNITS/ML 1ML VIAL/SYRINGE IV PRN (22:41)
[2024-09-28 22:42] LABS: VENOUS BASE EXCESS -3.1 (-2.0-2.0); VENOUS HCO3 24.8 MMOL/L (23.0-27.0); VENOUS O2 SATURATION 80.2 % (60.0-80.0); VENOUS PARTIAL PRESSURE CO2 58.6 mmHg (38.0-50.0); VENOUS PARTIAL PRESSURE O2 50.1 mmHg (30.0-50.0); VENOUS PH 7.245 UNITS (7.330-7.430); VENOUS STANDARD HCO3 21.5 MMOL/L; VENOUS TOTAL CO2 26.6 MMOL/L (24.0-28.0)
[2024-09-28] MEDS: HEPARIN DRIP 25,000 UNITS in IV 1 EA IV SCH (22:42)
[2024-09-28 22:45] LABS: HEMATOCRIT 33.3 % (42.0-52.0); MEAN CORPUSCULAR HEMOGLOBIN 25.2 pg (27.0-33.0); MEAN CORPUSCULAR VOLUME 83.9 fl (80.0-96.0); PLATELET COUNT, AUTOMATED 334 10^3/uL (150-450); RED BLOOD COUNT 3.97 10^6/uL (4.30-6.10); WHITE BLOOD COUNT 16.8 10^3/uL (4.0-10.0)
[2024-09-28 23:15] VITALS: O2SAT 99
[2024-09-28 23:26] VITALS: BP 95/46
== END 2024-09-28 23:36 | disposition short-term general hospital (02) ==
LOC: M ED 19:45 → EDBD 19:45 → M ED 23:36
DX: I21.4 Non-ST elevation (NSTEMI) myocardial infarction (principal); J44.1 Chronic obstructive pulmonary disease with (acute) exacerbation; I10 Essential (primary) hypertension; Z88.8 Allergy status to other drugs, medicaments and biological substances; Z91.030 Bee allergy status; Z79.51 Long term (current) use of inhaled steroids; Z79.899 Other long term (current) drug therapy
CPT/HCPCS: 71045; 80048; 82550; 82553; 82803; 83880; 84484; 85027; 85730; 87486; 87581; 87633; 87798; 93005; 94660; 96365; 96366; 96375; 99285; J0456